=== PATIENT | male | born 1985 | race African-American/Black ===

== ENCOUNTER 2025-05-11 13:32 | Emergency (ER) | payer OTHER, SELFPAY ==
[2025-05-11] VITALS (34 sets, daily range): BP systolic 95–130; BP diastolic 69–90; PULSE 75–131; RESP 15–132; O2SAT 86–99
--- NOTE | 2025-05-11 13:30 | RT.EKG_ITS ---
APPROVED REPORT Exam: Resting ECG Reason for Exam: dehydration Patient Location: E HR:129 bpm ECG Measurements Heart Rate 129 AXIS NC 146 P 75 QRSd 98 QRS 174 QT 313 T 1 QTc 459 Conclusion Sinus tachycardia, rate 129 Q wave lead III, no priors available No STEMI No interval abnormalities
--- NOTE | 2025-05-11 13:42 | ED.GENADUL_ITS ---
Discharge Plan Disposition Patient Disposition: Home Condition: Stable Discharge Details Clinical Impression: Acute dehydration, LOU (acute kidney injury) ED Provider: Oriana Harris Recommendations for Follow Up Recommended tests to be ordered by follow up provider: DESTINEY for kidney function 3-5 days Discharge Instructions Instructions: Acute Kidney Injury (DC) Additional Instructions: You were seen in the emergency department today for evaluation of a fast heart rate, sweating and cramping which is likely due to heatstroke/dehydration. In our department you do full physical examination performed and received IV fluids to good effect. You had laboratory studies that did show an elevation in your lactate, which has improved with fluids. I do note that you have evidence of a kidney injury which can happen during dehydration. Your repeat kidney studies are improving but not back to your normal. It is safe for you to go home and continue to drink fluids given the complete resolution of your symptoms, but if you have any difficulty maintaining your hydration, stop urinating or have pain when you urinate, or develop any other concerning symptoms you need to return immediately to the hospital for reevaluation. Your primary care provider needs to recheck your kidney function in the next 3 to 5 days. Please follow-up with your primary care provider in the next few days to discuss this visit and any symptoms that change, worsen, or persist. Thank you for allowing us to be part of your care. HPI General Mode of arrival: EMS . Date/Time Provider Initiated Documentation: 05/11/25 13:39 . Limitations to Documentation: no limitations . Information obtained by: patient, EMS and old records reviewed . HPI Narrative: This is a 39-year-old male patient, previously healthy who is presenting for evaluation of muscle cramping, diaphoresis and low blood pressure with tachycardia. The patient was playing basketball today, states that he tried to stay hydrated during this event, went home and took a shower and had a sudden onset of muscle cramping and felt very unwell. EMS noted him to be slightly hypotensive and tachycardic to the 150s, improved to the 120s after 500 cc of fluid. The patient was in his normal state of health prior to the basketball game, has no major medical history and has not taken any new medications. The patient reports that his cramps and pain are generalized, largely in his limbs and back. He is not experiencing any chest pain. Related Data Allergies Allergy/AdvReac Type Severity Reaction Status Date / Time hydrocodone AdvReac Visual Verified 05/11/25 14:07 Disturbances General Stated Complaint: AMS/LOC VJ: 2 Exam Narrative Exam Narrative: Gen: Awake and alert, appears acutely uncomfortable and profoundly diaphoretic HEENT: Non-icteric sclera, PERRL Neck: Supple Lungs: Slight tachypnea, lung sounds are otherwise clear and equal with no wheezes, rhonchi, rales CV: Appears poorly perfused with thready peripheral pulses, tachycardic rate, no murmurs auscultated Abdomen: Non-distended, soft, nontender MSK: Moves 4 extremities without apparent limitation in ROM Skin: Visualized skin cool, diaphoretic Neuro: Normal Gait, moves his extremities symmetrically, no sensory loss Psych: Appropriate for situation. Course Vital Signs Vital signs: Vital Signs Pulse 131 H 05/11/25 13:31 Respiratory Rate 132 H 05/11/25 13:31 Blood Pressure 95/71 L 05/11/25 13:31 Pulse Oximetry 95 05/11/25 13:31 Pulse 131 H 05/11/25 13:31 Respiratory Rate 132 H 05/11/25 13:31 Blood Pressure 95/71 L 05/11/25 13:31 Pulse Oximetry 95 05/11/25 13:31 Oxygen Delivery Method Room Air 05/11/25 13:31 Oxygen Flow Rate 0 05/11/25 13:31 Medical Decision Making This is a 39-year-old male patient presenting for evaluation of muscle cramps, diaphoresis, tachycardia, and hypotension in the setting of physical exertion. My differential includes but is not limited to dehydration, certainly considered rhabdomyolysis, heatstroke/heat exhaustion, kidney injury, metabolic derangements, ACS, arrhythmia. The patient has no history of sickle cell to abad ggest crisis. No acute chest syndrome. No medications were taken to suggest overdose or withdrawal syndromes. The patient is mentating appropriately and has not sustained trauma to suggest intracranial abnormality. We will establish a second IV and provide patient with a liter of IV fluids for rehydration. I obtained an EKG which shows a sinus tachycardia with a rate of 129, no evidence for acute ischemia though there are no priors available for comparison. He does have an isolated Q wave and T wave inversion in lead III. Bedside blood glucose was assessed and found to be normal making acute hypoglycemia unlikely in this nondiabetic patient. We will obtain laboratory studies to include CBC, CMP, magnesium, CK, troponin, lactate. The patient has already taken Tylenol and ibuprofen, and has an allergy to narcotic medications, so we will hold on treatment of his cramps at this time. - I reviewed the patient's laboratory studies, which does show a mildly elevated white blood cell count of 15. No anemia or thrombocytopenia. Chemistry panel is most notable for an acute LOU with a BUN of 27 and a creatinine of 3.1. No other significant electrolyte derangements other than a slightly high magnesium to 2.8. He does have a transaminitis that is mild in nature, no priors available for comparison. His CK is not significantly elevated, troponin is negative and without interval increase on 1 hour delta recheck. Lactate was significantly elevated to 7. On my reassessment the patient's heart rate has returned to normal after his fluids, and he has stopped sweating and his cramps have resolved entirely. He feels that he is entirely back to his baseline. I did repeat his lactate, which is now 1.2, as well as his BMP which shows an improvement in his creatinine after that fluid to 2.5. I did have a discussion with this patient and feel that he is a young and well person, who is tolerating oral intake, and has the ability to follow-up with his outpatient providers for a repeat kidney function test in the next few days. I do not feel that overnight admission would be mandatory for this patient as he can continue his rehydration in the home environment, and he had an opportunity to have all questions answered and understands the outpatient follow-up plan as well as return precautions if he should have difficulty maintaining his hydration, develop alterations in mental status, and urea, etc. At this time, the patient has had a full medical evaluation and is safe for discharge to home. They are hemodynamically stable, ambulatory, and tolerating PO. They are understanding of the follow-up plan and return precautions. They left our facility without incident. Oriana Harris MD [facility] All Active Problems (Updated 05/11/25 @ 16:28 by Oriana Harris MD) LOU (acute kidney injury) (Acute) Acute dehydration (Acute) Social History Smoking/Tobacco Use Status: Never Smoking risk assessment performed?: Yes Alcohol Intake: never
[2025-05-11] MEDS: Ondansetron 4 MG/2 ML VIAL IVP (13:54)
[2025-05-11] MEDS: Lactated Ringers 1,000 ML 1000 ML IV (13:55)
[2025-05-11 14:06] LABS: HCT 48.0 % (40.0-50.0); HGB 16.3 g/dL (13.5-17.5); MCH 29.6 pg (27.0-33.0); MCHC 34.0 % (32.0-36.0); MCV 87 fL (80-95); MPV 10.0 fL (8.0-11.0); Platelet Count 447 10^3/uL (130-400); RBC 5.51 10^6/uL (4.36-5.78); RDW 12.6 % (11.8-14.1); RDW-SD 39.8 fL; WBC 15.25 10^3/uL (4.4-10.8)
[2025-05-11 14:20] LABS: Abs Immature Grans 0.00 10^3/uL (0.0-0.06); Immature Grans % 0.0 %; RBC Morphology Normal
[2025-05-11 14:25] LABS: ALT 90 U/L (16-63); AST 56 U/L (15-37); Albumin 4.6 g/dL (3.4-5.0); Alkaline Phosphatase 216 U/L (46-116); Anion Gap 19.7 mmol/L (3-11); BUN 27 mg/dL (7-18); Bilirubin, Total 0.5 mg/dL (0.2-1.0); CO2 21.3 mmol/L (21.0-32.0); Calcium 11.1 mg/dL (8.5-10.1); Chloride 97 mmol/L (98-107); Creatine Kinase 266 U/L (39-308); Estimated GFR 24.62 (mL/min/1.73m2); Glucose 118 mg/dL (74-106); Magnesium 2.8 mg/dL (1.8-2.4); Potassium 3.9 mmol/L (3.5-5.1); Sodium 138 mmol/L (136-145); Total Protein 10.4 g/dL (6.4-8.2); Troponin I 43 ng/L (<or=76)
[2025-05-11 15:30] LABS: Troponin I 46 ng/L (<or=76)
[2025-05-11 16:18] LABS: Anion Gap 11.9 mmol/L (3-11); BUN 29 mg/dL (7-18); CO2 26.1 mmol/L (21.0-32.0); Calcium 9.7 mg/dL (8.5-10.1); Chloride 95 mmol/L (98-107); Estimated GFR 33.11 (mL/min/1.73m2); Glucose 96 mg/dL (74-106); Potassium 4.3 mmol/L (3.5-5.1); Sodium 133 mmol/L (136-145)
== END 2025-05-11 16:40 | disposition home or self-care (01) ==
LOC: ER 16:52
PROVIDERS: Emergency Provider Emergency Medicine
DX: E86.0 Dehydration (principal); N17.9 Acute kidney failure, unspecified
CPT/HCPCS: 99284 ×2; 36416; 82962; 96374; 80048; 80053; 82550; 93005; 83605; 83735; 84484; 85025; 93010; J2405